=== PATIENT | female | born 1975 | race Caucasian/White ===

== ENCOUNTER 2019-05-31 15:28 | Emergency (ER) | payer SELFPAY ==
[~2019-05-31] VITALS: Ht 167.6 cm; Wt 104.3 kg
[2019-05-31 15:50] VITALS: BP 132/93
[2019-05-31 16:26] LABS: Basophils # (auto) 0.1 uL; Basophils % (auto) 0.8 % (0.0-2.0); Eosinophils # (auto) 0.4 uL; Eosinophils % (auto) 4.1 % (0.0-7.0); Hematocrit 45.3 % (36.0-46.0); Hemoglobin 15.8 g/dL (12.2-16.2); Lymphocytes # (auto) 2.6 uL; Lymphocytes % (auto) 27.8 % (10.0-50.0); Mean Corpuscular Hemoglobin 29.5 pg (28.0-32.0); Mean Corpuscular Hgb Conc. 34.8 g/dL (32.0-36.0); Mean Corpuscular Volume 84.8 fL (80.0-100.0); Monocytes # (auto) 0.5 uL; Monocytes % (auto) 5.5 % (0.0-12.0); Neutrophils # (auto) 5.7 uL; Neutrophils % (auto) 61.8 % (37.0-80.0); Nucleated Red Blood Cells % 0.1 %; Platelet Count (auto) 349 10^3/uL (140-450); Red Blood Cells 5.35 10^6/uL (4.0-5.20); Red Cell Distribution Width 13.3 % (11.8-14.3); White Blood Cell 9.3 10^3/uL (4.4-10.8)
[2019-05-31 16:39] LABS: Albumin 4.1 g/dL (3.4-5.0); Anion Gap 7 (5-15); Blood Urea Nitrogen 9 mg/dL (7-18); Calcium 8.9 mg/dL (8.5-10.1); Carbon Dioxide 23 mmol/L (21-32); Chloride 107 mmol/L (98-107); Glucose 135 mg/dL (74-106); Potassium 4.3 mmol/L (3.5-5.1); Sodium 137 mmol/L (136-145)
[2019-05-31 16:41] LABS: Alanine Aminotransferase 34 U/L (13-56); Aspartate Aminotransferase 36 U/L (15-37); BUN/Creatinine Ratio 13.6; GFR African American 124 mL/min; GFR Non-African American 102 mL/min
[2019-05-31 16:43] LABS: Alkaline Phosphatase 97 U/L (45-117); Bilirubin, Total 0.6 mg/dL (0.2-1.0); Total Protein 7.9 g/dL (6.4-8.2)
== END 2019-05-31 17:15 | disposition left against medical advice (07) ==
LOC: ER 15:28
DX: R49.0 Dysphonia (principal); Z86.73 Personal history of transient ischemic attack (TIA), and cerebral infarction without residual deficits; Z90.89 Acquired absence of other organs; Z98.61 Coronary angioplasty status
CPT/HCPCS: 36415; 70450; 80053; 84484; 84702; 85025; 93005